=== PATIENT | female | born 1990 | race Caucasian/White ===

== ENCOUNTER 2022-01-09 17:00 | Day surgery (SDC) | payer OTHER ==
[2022-01-09] MEDS ORDERED: hydrALAZINE 20 MG/ML VIAL SLOW IVP PRN (18:33)
== END 2022-01-09 19:01 | disposition home or self-care (01) ==
LOC: CSHLD/OP 17:00
PROVIDERS: ATTEND Obstetrics & Gynecology
DX: O99.891 Other specified diseases and conditions complicating pregnancy (principal); R10.11 Right upper quadrant pain; Z3A.37 37 weeks gestation of pregnancy
CPT/HCPCS: 99281

== ENCOUNTER 2022-01-10 17:29 | Day surgery (SDC) | payer OTHER ==
[2022-01-10 17:58] VITALS: BMI 42.0
[2022-01-10] MEDS ORDERED: Lactated Ringer's 1,000 ML IV SCH (19:30)
[2022-01-10 19:35] LABS: #Eosinphils 0.1 10x3/uL (0.0-0.5); #Monocytes 0.9 10x3/uL (0.0-1.1); #Neutrophils 9.9 10x3/uL (1.5-8.4); %Basophils 0.3 % (0.0-2.0); %Eosinophils 0.6 % (0.0-6.0); %Lymphocytes 20.6 % (18.0-47.0); %Monocytes 6.3 % (0.0-10.0); %Neutrophils 70.8 % (40.0-75.0); Hemoglobin 12.8 g/dL (12.0-15.5); Mean Corpuscular HGB CONC 36.3 g/dL (32.0-36.0); Mean Corpuscular Hemoglobin 30.3 pg (27.0-33.0); Mean Corpuscular Volume 83.6 fl (81.6-98.3); Mean Platelet Volume 9.8 fl (7.4-10.4); Platelet Count 265 10x3/uL (150-450); RBC Distribution Width 14.2 % (11.5-14.5); Red Blood Cell (RBC) Count 4.22 10x6/uL (3.90-5.03)
[2022-01-10 19:54] LABS: ALT (SGPT) 9 U/L (8-55); AST (SGOT) 21 U/L (5-34); Albumin 3.5 g/dL (3.5-5.0); Alkaline Phosphatase 95 U/L (40-110); Anion Gap 14 mmol/L (10-20); BUN (Urea Nitrogen) 7 mg/dL (7.0-18.7); Bilirubin, Total 0.6 mg/dL (0.2-1.2); Calc. Creatinine Clearance 218 mL/min (70-130); Calcium 9.4 mg/dL (7.8-10.44); Carbon Dioxide 19 mmol/L (22-29); Chloride 107 mmol/L (98-107); Estimated GFR 122; Globulin 3.2 g/dL (2.4-3.5); Glucose 88 mg/dL (70-105); Potassium 3.8 mmol/L (3.5-5.1); Protein, Total 6.7 g/dL (6.0-8.3); Sodium 136 mmol/L (136-145)
[2022-01-10 20:11] LABS: Bilirubin Neg (Negative); Blood, Urine Negative (Negative); CAUTI Indications for Culture Pregnancy; Clarity Clear (Clear); Glucose, Urine (Dipstick) Normal (Negative); Ketone, Urine 15 mg/dL (Negative); Leukocyte 500 (Negative); Nitrite Negative (Negative); Protein, Urine (Dipstick) Negative (Neg-Trace); Specific Gravity, Urine 1.015 (1.005-1.030); Urobilinogen Normal mg/dL (Less than 2); pH, Urine 6.5 (5.0-9.0)
[2022-01-10 20:13] LABS: Urine Culture Reflex Yes Yes
[2022-01-10 20:19] LABS: Bacteria/HPF 3+ HPF (None Seen); RBC/HPF 0-3 HPF (0-3)
[2022-01-10 20:32] LABS: Creatinine, Urine 50.67 mg/dL (47-110); Protein, Urine Random Quant Less than 10 mg/dL (1-14)
[2022-01-10] MEDS ORDERED: cefTRIAXone\\ROCEPHIN 1 GM in Sodium Chloride 0.9% 100 ML IVPB SCH (21:15)
== END 2022-01-10 22:41 | disposition home or self-care (01) ==
LOC: CSHLD/OP 17:29 → CSHANTE 19:39 → INTOOBSV 19:39 → UNDOADMOB 19:39 → OBSVTOIN 19:39 → CSHLD/OP 22:41
PROVIDERS: ATTEND Obstetrics & Gynecology
DX: O23.43 Unspecified infection of urinary tract in pregnancy, third trimester (principal); N39.0 Urinary tract infection, site not specified; O99.283 Endocrine, nutritional and metabolic diseases complicating pregnancy, third trimester; E86.0 Dehydration; Z3A.37 37 weeks gestation of pregnancy; Z79.899 Other long term (current) drug therapy
CPT/HCPCS: 80053; 81001; 82570; 84156; 85025; 87086; J0696; J3490

== ENCOUNTER 2022-01-11 15:00 | Day surgery (SDC) | payer OTHER ==
[2022-01-11] MEDS ORDERED: hydrALAZINE 20 MG/ML VIAL SLOW IVP PRN (16:34)
== END 2022-01-11 16:45 | disposition home or self-care (01) ==
LOC: CSHLD/OP 15:00
PROVIDERS: ATTEND Advanced Practice Midwife
DX: O13.3 Gestational [pregnancy-induced] hypertension without significant proteinuria, third trimester (principal); Z3A.37 37 weeks gestation of pregnancy

== ENCOUNTER 2022-01-19 06:33 | Inpatient (IN) | payer OTHER ==
[~2022-01-19 06:33] MED LIST: Butorphanol Tartrate 1 MG/ML VIAL SLOW IVP PRN; Carboprost 250 MCG/ML AMP IM PRN; Diphenoxylate HCl/Atropine Tablet PO PRN; HYDROcodone/Acetaminophen 5/325 mg Tablet PO PRN; Ibuprofen 800 MG TAB PO PRN; Lidocaine 1% (PF) 30 ML VIAL SC PRN; Misoprostol 200 MCG TAB PR PRN; NS w/ Oxytocin 30 units 500 ML IV SCH; Ondansetron PF 4 MG/2 ML Vial IVP PRN; Promethazine HCl 25 MG/ML VIAL IM PRN; hydrALAZINE 20 MG/ML VIAL SLOW IVP PRN
[2022-01-19] MEDS: Misoprostol 100 MCG TAB VAG SCH ×3 (07:59→08:41)
[2022-01-19 08:08] LABS: Hemoglobin 12.8 g/dL (12.0-15.5); Mean Corpuscular HGB CONC 36.5 g/dL (32.0-36.0); Mean Corpuscular Hemoglobin 30.5 pg (27.0-33.0); Mean Corpuscular Volume 83.6 fl (81.6-98.3); Mean Platelet Volume 10.1 fl (7.4-10.4); Platelet Count 259 10x3/uL (150-450); RBC Distribution Width 14.6 % (11.5-14.5); White Blood Cell (WBC) Count 13.8 10x3/uL (3.5-10.5)
[2022-01-19 08:21] LABS: ALT (SGPT) 10 U/L (8-55); AST (SGOT) 16 U/L (5-34); Albumin 3.4 g/dL (3.5-5.0); Alkaline Phosphatase 95 U/L (40-110); Anion Gap 14 mmol/L (10-20); BUN (Urea Nitrogen) 9 mg/dL (7.0-18.7); Bilirubin, Total 0.5 mg/dL (0.2-1.2); Calc. Creatinine Clearance 0 mL/min (70-130); Calcium 9.2 mg/dL (7.8-10.44); Carbon Dioxide 17 mmol/L (22-29); Chloride 108 mmol/L (98-107); Estimated GFR 123; Globulin 2.6 g/dL (2.4-3.5); Glucose 102 mg/dL (70-105); Potassium 3.9 mmol/L (3.5-5.1); Sodium 135 mmol/L (136-145)
[2022-01-19 08:40] VITALS: BMI 45.7
[2022-01-19 08:40] LABS: HBSAg Index 0.18 S/CO (0-0.99); Hep B Surf Ag Non-Reactive S/CO (NonReactive)
[2022-01-19 08:41] LABS: Syphilis Antibody Nonreactive (Nonreactive); Syphilis Antibody Index 0.04 S/CO (<1.00 Non-Reactive)
[2022-01-19] MEDS: Lactated Ringer's 1,000 ML IV SCH (08:41)
[2022-01-19] MEDS ORDERED: Fentanyl 2 mcg/Bup 0.1% Cadd 100 ML ONE (14:24)
[2022-01-19] MEDS ORDERED: diphenhydrAMINE 50 MG/ML VIAL IVP PRN (14:47)
[2022-01-19] MEDS ORDERED: Acetaminophen 325 MG TAB PO PRN (14:48)
[2022-01-20] MEDS ORDERED: Naloxone HCl 0.4 mg/ml Vial IVP PRN ×2 (00:20)
[2022-01-20] MEDS ORDERED: ePHEDrine Sulfate 50 MG/10 ML VIAL SLOW IVP PRN (00:20)
[2022-01-20] MEDS ORDERED: Ondansetron PF 4 MG/2 ML Vial IVP PRN (00:20)
[2022-01-20] MEDS ORDERED: Ondansetron HCl/PF 4 MG/2 ML Vial IVP PRN (00:20)
[2022-01-20] MEDS ORDERED: Acetaminophen 325 MG TAB PO PRN (00:20)
[2022-01-20] MEDS ORDERED: diphenhydrAMINE 50 MG/ML VIAL IVP PRN (00:20)
[2022-01-20] MEDS ORDERED: Fentanyl 100 MCG/2 ML VIAL SLOW IVP PRN (00:20)
[2022-01-20] MEDS ORDERED: Promethazine HCl 25 MG/ML VIAL IM PRN (00:20)
[2022-01-20] MEDS ORDERED: Moisturizing Cream (Eucerin) 113 GM JAR TOP PRN (00:20)
[2022-01-20] MEDS ORDERED: Meperidine HCl/PF 25 MG/ML VIAL SLOW IVP PRN (00:20)
[2022-01-20] MEDS ORDERED: Lactated Ringer's 500 ML IV PRN (00:20)
[2022-01-20] MEDS ORDERED: Communication Order-Pharmacy FS SCH (00:30)
[2022-01-20] MEDS ORDERED: Ketorolac Tromethamine 30 MG/ML VIAL IVP SCH (00:30)
[2022-01-20] MEDS ORDERED: Fentanyl 2 mcg/Bupivacaine 0.1% Cassette 100 ML EPIDURAL SCH (00:30)
[2022-01-20 04:23] LABS: SARS-CoV-2 NAA Rapid Test Not Detected (NotDetected)
[2022-01-20] MEDS ORDERED: Lanolin Ointment 7 GM TUBE TOP PRN (18:07)
[2022-01-20] MEDS ORDERED: Benzocaine-Menthol 82.5 ML CAN TOP PRN (18:07)
[2022-01-20] MEDS ORDERED: Bisacodyl 10 MG SUPP PR PRN (18:07)
[2022-01-20] MEDS ORDERED: hydrALAZINE 20 MG/ML VIAL SLOW IVP PRN (18:07)
[2022-01-20] MEDS ORDERED: Boostrix 0.5 ML (Tdap) VIAL (>/=7 yrs of age) IM ONE (18:07)
[2022-01-20] MEDS ORDERED: Misoprostol 200 MCG TAB VAG PRN (18:07)
[2022-01-20] MEDS ORDERED: Milk Of Magnesia 30 ML UDCUP PO PRN (18:07)
[2022-01-20] MEDS ORDERED: HYDROcodone/Acetaminophen 5/325 mg Tablet PO PRN ×2 (18:07)
[2022-01-20] MEDS ORDERED: NS w/ Oxytocin 30 units 500 ML IV SCH (18:07)
[2022-01-20] MEDS: Docusate 100 MG CAP PO SCH (22:39)
[2022-01-21] MEDS: Ibuprofen 800 MG TAB PO SCH ×3 (05:48→21:25)
[2022-01-21] MEDS: Prenatal Vitamin 1 TAB PO SCH (09:02)
[2022-01-21] MEDS: Docusate 100 MG CAP PO SCH ×2 (09:02→21:25)
[2022-01-21] MEDS: Ferrous Sulfate 325 MG TAB PO SCH ×2 (09:37→18:24)
[2022-01-22] MEDS: Ibuprofen 800 MG TAB PO SCH ×2 (05:28→13:18)
[2022-01-22] MEDS: Lactated Ringer's 1,000 ML IV SCH ×2 (07:57→07:59)
[2022-01-22] MEDS: Misoprostol 100 MCG TAB VAG SCH ×2 (07:58→07:59)
[2022-01-22] MEDS: Docusate 100 MG CAP PO SCH (08:08)
[2022-01-22] MEDS: Ferrous Sulfate 325 MG TAB PO SCH ×2 (08:10→08:11)
[2022-01-22] MEDS: Prenatal Vitamin 1 TAB PO SCH (08:11)
[2022-01-22 09:13] VITALS: BP 127/88; TEMP 98.2
== END 2022-01-22 13:39 | disposition home or self-care (01) | DRG 807 ==
LOC: CSHLD 06:33 → CSHPP 01-20 21:23
PROVIDERS: ADMIT Obstetrics & Gynecology; ATTEND Advanced Practice Midwife
PROC: 10E0XZZ Delivery of Products of Conception, External Approach (ICD-10-PCS; principal; 2022-01-20)
PROC: 0KQM0ZZ Repair Perineum Muscle, Open Approach (ICD-10-PCS; 2022-01-20)
PROC: 0UQMXZZ Repair Vulva, External Approach (ICD-10-PCS; 2022-01-20)
DX: O13.4 Gestational [pregnancy-induced] hypertension without significant proteinuria, complicating childbirth (principal); Z37.0 Single live birth; Z3A.38 38 weeks gestation of pregnancy; Z20.822 Contact with and (suspected) exposure to COVID-19; O70.1 Second degree perineal laceration during delivery; O71.82 Other specified trauma to perineum and vulva; Z79.82 Long term (current) use of aspirin
CPT/HCPCS: 36415; 51702; 80053; 85027; 86780; 86850; 86900; 86901; 87340; J1200; J2405; U0002

== ENCOUNTER 2024-10-30 04:33 | Day surgery (SDC) | payer OTHER ==
[2024-10-30 04:59] VITALS: BMI 47.5
[2024-10-30] MEDS ORDERED: hydrALAZINE 20 MG/ML VIAL SLOW IVP PRN (05:24)
[2024-10-30 05:54] LABS: Protein, Urine Random Quant Less than 10 mg/dL (1-14)
[2024-10-30 06:05] LABS: #Basophils Less than 0.03 10x3/uL (0.0-0.2); #Eosinophils 0.07 10x3/uL (0.0-0.5); #Monocytes 0.88 10x3/uL (0.0-1.1); #Neutrophils 10.05 10x3/uL (1.5-8.4); %Basophils 0.2 % (0.0-2.0); %Eosinophils 0.6 % (0.0-6.0); %Lymphocytes 5.4 % (18.0-47.0); %Monocytes 7.4 % (0.0-10.0); %Neutrophils 84.6 % (40.0-75.0); Hematocrit 32.8 % (34.9-44.5); Hemoglobin 11.3 g/dL (12.0-15.5); Mean Corpuscular Hemoglobin 28.5 pg (27.0-33.0); Mean Corpuscular Volume 82.6 fL (81.6-98.3); Platelet Count 246 10x3/uL (150-450); Red Blood Cell (RBC) Count 3.97 10x6/uL (3.90-5.03); White Blood Cell (WBC) Count 11.87 10x3/uL (3.5-10.5)
[2024-10-30] MEDS: Acetaminophen 500 MG TAB PO SCH (06:05)
[2024-10-30 06:18] LABS: ALT (SGPT) 22 U/L (Less than 34); AST (SGOT) 26 U/L (11-34); Albumin 2.9 g/dL (3.1-4.5); Alkaline Phosphatase 95 U/L (40-110); Anion Gap 14 mmol/L (10-20); BUN (Urea Nitrogen) 6 mg/dL (7.0-18.7); Bilirubin, Total 0.4 mg/dL (0.3-1.2); Calc. Creatinine Clearance 244 mL/min (70-130); Calcium 8.6 mg/dL (7.8-10.44); Carbon Dioxide 19 mmol/L (22-29); Chloride 105 mmol/L (98-107); Globulin 3.4 g/dL (2.4-3.5); Glucose 103 mg/dL (70-105); Potassium 3.9 mmol/L (3.5-5.1); Sodium 134 mmol/L (136-145)
[2024-10-30 07:19] LABS: Influenza A by NAA Not Detected (NotDetected); Influenza B by NAA Not Detected (NotDetected); SARS-CoV-2 NAA Rapid Test DETECTED (NotDetected)
== END 2024-10-30 08:18 | disposition home or self-care (01) ==
LOC: CSHLD/OP 04:33
PROVIDERS: ATTEND Obstetrics & Gynecology
DX: O13.3 Gestational [pregnancy-induced] hypertension without significant proteinuria, third trimester (principal); O09.523 Supervision of elderly multigravida, third trimester; O99.213 Obesity complicating pregnancy, third trimester; O99.283 Endocrine, nutritional and metabolic diseases complicating pregnancy, third trimester; E03.9 Hypothyroidism, unspecified; Z3A.36 36 weeks gestation of pregnancy; Z67.10 Type A blood, Rh positive; Z79.82 Long term (current) use of aspirin; Z79.899 Other long term (current) drug therapy
CPT/HCPCS: 80053; 82570; 84156; 84443; 85025; 87636; 96360; 99285

== ENCOUNTER 2024-11-05 18:00 | Inpatient (IN) | payer OTHER ==
[2024-11-07 00:34] VITALS: BMI 45.7
[2024-11-07] MEDS ORDERED: Ondansetron PF 4 MG/2 ML Vial IVP PRN ×3 (01:44→21:45)
[2024-11-07] MEDS ORDERED: Oxytocin 30 units/NS 500 ML 500 ML IV SCH ×3 (01:44→21:45)
[2024-11-07] MEDS ORDERED: Lidocaine 1% (PF) 30 ML VIAL SC PRN (01:44)
[2024-11-07] MEDS ORDERED: Diphenoxylate HCl/Atropine Tablet PO PRN ×2 (01:44)
[2024-11-07] MEDS ORDERED: Tranexamic Acid 1,000 MG/10 ML VIAL IVP PRN (01:44)
[2024-11-07] MEDS ORDERED: hydrALAZINE 20 MG/ML VIAL SLOW IVP PRN ×3 (01:44→02:00)
[2024-11-07] MEDS ORDERED: Carboprost 250 MCG/ML AMP IM PRN (01:44)
[2024-11-07] MEDS ORDERED: HYDROcodone/Acetaminophen 5/325 mg Tablet PO PRN ×4 (01:44→21:45)
[2024-11-07 02:26] LABS: Hematocrit 33.5 % (34.9-44.5); Hemoglobin 11.8 g/dL (12.0-15.5); Mean Corpuscular Hemoglobin 29.2 pg (27.0-33.0); Mean Corpuscular Volume 82.9 fL (81.6-98.3); Platelet Count 331 10x3/uL (150-450); Red Blood Cell (RBC) Count 4.04 10x6/uL (3.90-5.03); White Blood Cell (WBC) Count 14.84 10x3/uL (3.5-10.5)
[2024-11-07 02:41] LABS: ALT (SGPT) 11 U/L (Less than 34); AST (SGOT) 19 U/L (11-34); Albumin 2.9 g/dL (3.1-4.5); Alkaline Phosphatase 101 U/L (40-110); Anion Gap 16 mmol/L (10-20); BUN (Urea Nitrogen) 13 mg/dL (7.0-18.7); Bilirubin, Total 0.3 mg/dL (0.3-1.2); Calc. Creatinine Clearance 227 mL/min (70-130); Calcium 9.1 mg/dL (7.8-10.44); Carbon Dioxide 20 mmol/L (22-29); Chloride 105 mmol/L (98-107); Globulin 3.6 g/dL (2.4-3.5); Glucose 90 mg/dL (70-105); Potassium 4.4 mmol/L (3.5-5.1); Sodium 137 mmol/L (136-145)
[2024-11-07 02:55] LABS: Hep B Surf Ag - L&D Non-Reactive S/CO (NonReactive)
[2024-11-07 02:57] LABS: Syphilis Antibody Index 0.07 S/CO (<1.00 Non-Reactive)
[2024-11-07] MEDS ORDERED: Acetaminophen 325 MG TAB PO PRN (11:42)
[2024-11-07] MEDS ORDERED: diphenhydrAMINE 50 MG/ML VIAL IVP PRN (11:42)
[2024-11-07] MEDS ORDERED: Communication Order-Pharmacy FS SCH (11:45)
[2024-11-07] MEDS ORDERED: fentaNYL 2 mcg/Ropivacaine 0.2% Epidural 100 ML CADD EPIDURAL SCH (11:45)
[2024-11-07] MEDS: Ibuprofen 800 MG TAB PO PRN (18:18)
[2024-11-07] MEDS: fentaNYL/Ropivacaine Epidural 100 ML ONE (19:07)
[2024-11-07] MEDS: NIFEdipine XL 30 MG ER.TAB PO SCH (19:18)
[2024-11-07] MEDS ORDERED: Milk Of Magnesia 30 ML UDCUP PO PRN (21:45)
[2024-11-07] MEDS ORDERED: Bisacodyl 10 MG SUPP PR PRN (21:45)
[2024-11-08] MEDS: Ibuprofen 800 MG TAB PO SCH (02:38)
[2024-11-08] MEDS: Boostrix 0.5 ML (Tdap) VIAL (>/=7 yrs of age) IM ONE (07:56)
[2024-11-08] MEDS: Ferrous Sulfate 325 MG TAB PO SCH (07:57)
[2024-11-08] MEDS: NIFEdipine XL 30 MG ER.TAB PO SCH (08:33)
[2024-11-08] MEDS: hydrALAZINE 20 MG/ML VIAL SLOW IVP PRN (08:33)
[2024-11-08] MEDS: Benzocaine-Menthol 82.5 ML CAN TOP PRN (08:40)
[2024-11-08] MEDS: Magnesium Sulfate 20 gm/500 ml 4 GM/100 ML BAG IVPB SCH (09:55)
[2024-11-08] MEDS: Magnesium Sulfate 20 gm/500 ml 20 GM/500 ML BAG IVPB SCH (10:25)
[2024-11-08] MEDS ORDERED: Calcium Gluc 4.6 MEQ/10 ML (100 MG/ML) SLOW IVP PRN ×2 (10:42→13:27)
[2024-11-08 11:16] LABS: #Basophils 0.04 10x3/uL (0.0-0.2); #Eosinophils 0.08 10x3/uL (0.0-0.5); #Monocytes 0.83 10x3/uL (0.0-1.1); #Neutrophils 12.84 10x3/uL (1.5-8.4); %Basophils 0.2 % (0.0-2.0); %Eosinophils 0.5 % (0.0-6.0); %Lymphocytes 16.2 % (18.0-47.0); %Monocytes 5.0 % (0.0-10.0); %Neutrophils 76.7 % (40.0-75.0); Hematocrit 34.6 % (34.9-44.5); Hemoglobin 11.5 g/dL (12.0-15.5); Mean Corpuscular Hemoglobin 28.0 pg (27.0-33.0); Mean Corpuscular Volume 84.4 fL (81.6-98.3); Platelet Count 310 10x3/uL (150-450); Red Blood Cell (RBC) Count 4.10 10x6/uL (3.90-5.03); White Blood Cell (WBC) Count 16.73 10x3/uL (3.5-10.5)
[2024-11-08 11:23] LABS: ALT (SGPT) 12 U/L (Less than 34); AST (SGOT) 28 U/L (11-34); Albumin 2.7 g/dL (3.1-4.5); Alkaline Phosphatase 87 U/L (40-110); Anion Gap 16 mmol/L (10-20); BUN (Urea Nitrogen) 8 mg/dL (7.0-18.7); Bilirubin, Total 0.4 mg/dL (0.3-1.2); Calc. Creatinine Clearance 247 mL/min (70-130); Calcium 8.6 mg/dL (7.8-10.44); Carbon Dioxide 18 mmol/L (22-29); Chloride 108 mmol/L (98-107); Globulin 3.6 g/dL (2.4-3.5); Glucose 97 mg/dL (70-105); Potassium 4.2 mmol/L (3.5-5.1); Sodium 138 mmol/L (136-145)
[2024-11-08] MEDS ORDERED: hydrALAZINE 20 MG/ML VIAL SLOW IVP PRN (13:27)
[2024-11-09] MEDS: NIFEdipine XL 30 MG ER.TAB PO SCH (13:23)
[2024-11-10 08:46] LABS: #Basophils 0.03 10x3/uL (0.0-0.2); #Eosinophils 0.22 10x3/uL (0.0-0.5); #Monocytes 0.62 10x3/uL (0.0-1.1); #Neutrophils 9.61 10x3/uL (1.5-8.4); %Basophils 0.2 % (0.0-2.0); %Eosinophils 1.6 % (0.0-6.0); %Lymphocytes 20.1 % (18.0-47.0); %Monocytes 4.6 % (0.0-10.0); %Neutrophils 72.2 % (40.0-75.0); Hematocrit 33.5 % (34.9-44.5); Hemoglobin 11.1 g/dL (12.0-15.5); Mean Corpuscular Hemoglobin 28.4 pg (27.0-33.0); Mean Corpuscular Volume 85.7 fL (81.6-98.3); Platelet Count 278 10x3/uL (150-450); Red Blood Cell (RBC) Count 3.91 10x6/uL (3.90-5.03); White Blood Cell (WBC) Count 13.35 10x3/uL (3.5-10.5)
[2024-11-10 09:09] LABS: ALT (SGPT) 13 U/L (Less than 34); AST (SGOT) 17 U/L (11-34); Albumin 2.9 g/dL (3.1-4.5); Alkaline Phosphatase 74 U/L (40-110); Anion Gap 16 mmol/L (10-20); BUN (Urea Nitrogen) 9 mg/dL (7.0-18.7); Bilirubin, Total 0.4 mg/dL (0.3-1.2); Calc. Creatinine Clearance 213 mL/min (70-130); Calcium 8.5 mg/dL (7.8-10.44); Carbon Dioxide 20 mmol/L (22-29); Chloride 106 mmol/L (98-107); Globulin 3.5 g/dL (2.4-3.5); Glucose 99 mg/dL (70-105); Potassium 4.0 mmol/L (3.5-5.1); Sodium 138 mmol/L (136-145)
[2024-11-10] MEDS: hydrALAZINE 20 MG/ML VIAL SLOW IVP PRN (23:44)
[2024-11-11 04:04] LABS: #Basophils 0.05 10x3/uL (0.0-0.2); #Eosinophils 0.21 10x3/uL (0.0-0.5); #Monocytes 0.72 10x3/uL (0.0-1.1); #Neutrophils 7.72 10x3/uL (1.5-8.4); %Basophils 0.4 % (0.0-2.0); %Eosinophils 1.6 % (0.0-6.0); %Lymphocytes 30.6 % (18.0-47.0); %Monocytes 5.6 % (0.0-10.0); %Neutrophils 60.5 % (40.0-75.0); Hematocrit 35.0 % (34.9-44.5); Hemoglobin 11.7 g/dL (12.0-15.5); Mean Corpuscular Hemoglobin 28.5 pg (27.0-33.0); Mean Corpuscular Volume 85.2 fL (81.6-98.3); Platelet Count 295 10x3/uL (150-450); Red Blood Cell (RBC) Count 4.11 10x6/uL (3.90-5.03); White Blood Cell (WBC) Count 12.77 10x3/uL (3.5-10.5)
[2024-11-11 04:18] LABS: ALT (SGPT) 12 U/L (Less than 34); AST (SGOT) 18 U/L (11-34); Albumin 3.0 g/dL (3.1-4.5); Alkaline Phosphatase 74 U/L (40-110); Anion Gap 14 mmol/L (10-20); BUN (Urea Nitrogen) 12 mg/dL (7.0-18.7); Bilirubin, Total 0.3 mg/dL (0.3-1.2); Calc. Creatinine Clearance 213 mL/min (70-130); Calcium 9.0 mg/dL (7.8-10.44); Carbon Dioxide 24 mmol/L (22-29); Chloride 105 mmol/L (98-107); Globulin 3.5 g/dL (2.4-3.5); Glucose 87 mg/dL (70-105); Potassium 3.9 mmol/L (3.5-5.1); Sodium 139 mmol/L (136-145)
[2024-11-11] MEDS: Ibuprofen 800 MG TAB PO SCH (05:14)
[2024-11-11 11:21] VITALS: TEMP 97.8
[2024-11-11 15:48] VITALS: BP 145/95
== END 2024-11-11 17:00 | disposition home or self-care (01) | DRG 807 ==
LOC: UNDOADMIN 11-06 20:59 → CSHLD 11-06 20:59 → CSHPP 11-07 21:45 → CSHLD 11-07 21:45 → CSHPP 11-08 11:30 → CSHLD 11-09 11:35
PROVIDERS: ADMIT Obstetrics & Gynecology; ATTEND Obstetrics & Gynecology
PROC: 10E0XZZ Delivery of Products of Conception, External Approach (ICD-10-PCS; principal; 2024-11-07)
PROC: 0KQM0ZZ Repair Perineum Muscle, Open Approach (ICD-10-PCS; 2024-11-07)
DX: O13.4 Gestational [pregnancy-induced] hypertension without significant proteinuria, complicating childbirth (principal); Z37.0 Single live birth; Z3A.37 37 weeks gestation of pregnancy; O70.1 Second degree perineal laceration during delivery; O14.95 Unspecified pre-eclampsia, complicating the puerperium
CPT/HCPCS: 36415; 51702; 80053; 85025; 85027; 86780; 86850; 86900; 86901; 87340; J0360; J3475